=== PATIENT | female | born 1990 | race Caucasian/White ===

== ENCOUNTER 2018-03-24 11:46 | Emergency (ER) | payer BC ==
[~2018-03-24 11:46] MED LIST: EMTRICITABINE/TENOFOVIR 200MG/300MG TAB PO SCH; RALTEGRAVIR 400 MG TAB PO SCH
[2018-03-24 11:53] VITALS: BP 128/76
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
[2018-03-24] MEDS ORDERED: ONDANSETRON DISINTEGRATING 4 MG TAB PO ONE (12:40)
[2018-03-24 13:17] LABS: PLATELET COUNT 200 10^3/uL (150-400)
[2018-03-24] MEDS: IBUPROFEN 600 MG TAB PO ONE (13:24)
[2018-03-24] MEDS: AZITHROMYCIN 250 MG TAB PO ONE (14:08)
[2018-03-24] MEDS: EMTRICITABINE/TENOFOVIR 200MG/300MG TAB PO ONE (14:10)
[2018-03-24] MEDS: RALTEGRAVIR 400 MG TAB PO ONE (14:10)
[2018-03-24] MEDS: cefTRIAXone 250 MG VIAL IM ONE (14:15)
[2018-03-24 15:10] LABS: HEPATITIS B SURFACE ANTIGEN NEGATIVE (NEGATIVE); HEPATITIS C ANTIBODY TOTAL NEGATIVE (NEGATIVE); HIV TYPE 1 AND 2 NEGATIVE (NEGATIVE)
== END 2018-03-24 16:02 | disposition home or self-care (01) ==
LOC: EEVIPCON 11:46
DX: T74.21XA Adult sexual abuse, confirmed, initial encounter (principal); Z91.040 Latex allergy status; Y07.59 Other non-family member, perpetrator of maltreatment and neglect; Y92.89 Other specified places as the place of occurrence of the external cause; Y99.8 Other external cause status; Y93.89 Activity, other specified
CPT/HCPCS: G0472; J0696